=== PATIENT | female | born 2000 | race Hispanic/Latino ===

== ENCOUNTER 2018-06-24 16:04 | Emergency (ER) | payer OTHER ==
[~2018-06-24 16:04] MED LIST: METR-152 PO; PNV11TAB5 PO
[2018-06-24 17:37] LABS: BASOPHILS % (AUTO) 0.7 % (0.0-5.0); EOSINOPHILS % (AUTO) 1.3 % (0.0-8.0); HEMATOCRIT 37.6 % (36-48); MEAN CORPUSCULAR HEMOGLOBIN 28.6 pg (27.0-33.0); MEAN CORPUSCULAR HGB CONC 33.6 g/dL (32.0-36.0); MEAN CORPUSCULAR VOLUME 85.2 fL (80-100); MONOCYTES % (AUTO) 8.6 % (3.0-13.0); NEUTROPHILS % (AUTO) 54.4 % (40.0-77.0); NUCLEATED RED BLOOD CELLS 0.2 % (0.0-0.19); PLATELET COUNT (AUTO) 201 K/uL (130-400); RED BLOOD CELL COUNT(AUTO) 4.41 MIL/uL (4.00-5.50); RED CELL DISTRIBUTION WIDTH 13.7 % (11.0-15.5); WHITE BLOOD COUNT (AUTO) 7.7 K/uL (4.8-10.8)
[2018-06-24 17:55] LABS: CREATININE 0.6 mg/dL (0.5-1.5); POTASSIUM 3.3 mmol/L (3.5-5.1)
[2018-06-24 18:17] LABS: APPEARANCE,URINE Clear (CLEAR); BILIRUBIN,URINE Negative (NEGATIVE); COLOR,URINE Yellow (YELLOW); GLUCOSE, URINE (UA) Negative (NEGATIVE); KETONES,URINE Negative (NEGATIVE); LEUKOCYTE ESTERASE ,URINE Trace (NEGATIVE); NITRATE,URINE Negative (NEGATIVE); OCCULT BLOOD,URINE Negative (NEGATIVE); PH,URINE 6.5 (5.0-8.0); PROTEIN,URINE Negative (NEGATIVE)
[2018-06-24 18:21] LABS: BILIRUBIN,TOTAL 0.3 mg/dL (0.2-1.0); TOTAL PROTEIN, SERUM 7.6 g/dL (6.0-8.3)
[2018-06-24 18:55] LABS: BACTERIA,URINE Rare /HPF (None Seen); RBC,URINE 0-1 /HPF (0-1)
[2018-06-24 18:56] LABS: SQUAMOUS EPITHELIAL CELL,UR Few /HPF (0-2)
== END 2018-06-24 18:47 | disposition home or self-care (01) ==
LOC: EDH 16:04
DX: O20.0 Threatened abortion (principal); O23.41 Unspecified infection of urinary tract in pregnancy, first trimester; O99.511 Diseases of the respiratory system complicating pregnancy, first trimester; E87.6 Hypokalemia; J45.909 Unspecified asthma, uncomplicated; Z3A.01 Less than 8 weeks gestation of pregnancy
CPT/HCPCS: 36415; 76801; 80053; 81001; 84702; 85025

== ENCOUNTER 2018-12-05 05:04 | Observation (INO) | payer MEDICAID ==
[~2018-12-05] VITALS: Ht 157.5 cm; Wt 60.8 kg
[2018-12-05] MEDS ORDERED: LACTATED RINGERS 1000ML 1,000 ML IV PRN (05:19)
[2018-12-05 05:39] LABS: APPEARANCE,URINE Cloudy (CLEAR); BILIRUBIN,URINE Negative (NEGATIVE); COLOR,URINE Yellow (YELLOW); GLUCOSE, URINE (UA) Negative (NEGATIVE); KETONES,URINE Negative (NEGATIVE); LEUKOCYTE ESTERASE ,URINE Moderate (NEGATIVE); NITRATE,URINE Negative (NEGATIVE); OCCULT BLOOD,URINE Negative (NEGATIVE); PH,URINE 6.5 (5.0-8.0); PROTEIN,URINE Negative (NEGATIVE)
[2018-12-05 05:46] LABS: AMPHET/METH SCREEN,URINE NEGATIVE (NEGATIVE); BARBITURATE SCREEN, URINE NEGATIVE (NEGATIVE); BENZODIAZEPINES SCREEN,URINE NEGATIVE (NEGATIVE); CANNABINOID SCREEN,URINE NEGATIVE (NEGATIVE); COCAINE SCREEN,URINE NEGATIVE (NEGATIVE); OPIATE SCREEN,URINE NEGATIVE (NEGATIVE); PHENCYCLIDINE SCREEN,URINE NEGATIVE (NEGATIVE)
[2018-12-05 06:09] LABS: BACTERIA,URINE Moderate /HPF (None Seen); MUCUS,URINE Moderate LPF (None Seen); RBC,URINE None Seen /HPF (0-1)
== END 2018-12-05 06:45 | disposition home or self-care (01) ==
LOC: EDH 05:04 → LDH 05:14
PROVIDERS: ADMIT Obstetrics & Gynecology; ATTEND Obstetrics & Gynecology
DX: O60.03 Preterm labor without delivery, third trimester (principal); Z3A.35 35 weeks gestation of pregnancy; Z79.899 Other long term (current) drug therapy
CPT/HCPCS: 80305; 81001; 99284; G0378 ×2

== ENCOUNTER 2019-01-23 22:24 | Observation (INO) | payer BC, MEDICAID ==
[~2019-01-23] VITALS: Ht 157.5 cm; Wt 66.7 kg
[2019-01-23 23:02] LABS: APPEARANCE,URINE Clear (CLEAR); BILIRUBIN,URINE Negative (NEGATIVE); COLOR,URINE Yellow (YELLOW); GLUCOSE, URINE (UA) Negative (NEGATIVE); KETONES,URINE Negative (NEGATIVE); LEUKOCYTE ESTERASE ,URINE Moderate (NEGATIVE); NITRATE,URINE Negative (NEGATIVE); OCCULT BLOOD,URINE Negative (NEGATIVE); PH,URINE 7.5 (5.0-8.0); PROTEIN,URINE Negative (NEGATIVE)
[2019-01-23 23:14] LABS: BACTERIA,URINE Rare /HPF (None Seen); RBC,URINE 0-1 /HPF (0-1)
== END 2019-01-24 | disposition home or self-care (01) ==
LOC: EDH 22:24 → LDH 22:40
PROVIDERS: ADMIT Obstetrics & Gynecology; ATTEND Obstetrics & Gynecology
DX: O26.893 Other specified pregnancy related conditions, third trimester (principal); R10.30 Lower abdominal pain, unspecified; M54.5 Low back pain; O99.513 Diseases of the respiratory system complicating pregnancy, third trimester; J45.909 Unspecified asthma, uncomplicated; Z3A.37 37 weeks gestation of pregnancy
CPT/HCPCS: 81001; 99284; G0378

== ENCOUNTER 2019-02-06 21:58 | Inpatient (IN) | payer BC, MEDICAID | END 2019-02-08 14:55 | disposition home or self-care (01) | LOC: LDH 21:58 → WSH 02-07 14:28 ==

== ENCOUNTER 2020-05-13 05:58 | Emergency (ER) | payer BC, MEDICAID ==
[~2020-05-13] VITALS: Ht 162.6 cm; Wt 58.1 kg
[2020-05-13] MEDS ORDERED: SODIUM CHLORIDE 0.9% 1000ML 2,000 ML IV ONE (06:18)
[2020-05-13 06:27] LABS: BASOPHILS % (AUTO) 1.1 % (0.0-5.0); EOSINOPHILS % (AUTO) 2.6 % (0.0-8.0); HEMATOCRIT 37.1 % (36-48); MEAN CORPUSCULAR HEMOGLOBIN 24.9 pg (27.0-33.0); MEAN CORPUSCULAR VOLUME 80.5 fL (79-99); NEUTROPHILS % (AUTO) 40.1 % (40.0-77.0); PLATELET COUNT (AUTO) 270 K/uL (130-400); RED BLOOD CELL COUNT(AUTO) 4.61 MIL/uL (4.00-5.50); RED CELL DISTRIBUTION WIDTH 14.7 % (11.0-15.5); WHITE BLOOD COUNT (AUTO) 5.5 K/uL (4.8-10.8)
[2020-05-13 06:37] LABS: CARBON DIOXIDE 25 mmol/L (21-32); CHLORIDE 102 mmol/L (101-111); CREATININE 0.6 mg/dL (0.5-1.5); GLOMERULAR FILTR. RATE CALC 133 mL/min (>60); GLUCOSE,RANDOM 83 mg/dL (70-105); POTASSIUM 3.3 mmol/L (3.5-5.1); SODIUM SERUM 141 mmol/L (136-145); UREA NITROGEN, BLOOD 11 mg/dL (7-18)
[2020-05-13 06:41] LABS: ALANINE AMINOTRANSFERASE 13 U/L (12-78); ALBUMIN 3.7 g/dL (3.5-5.0); ALCOHOL, BLOOD 122 mg/dL (0-10); ASPARTATE AMINOTRANSFERASE 17 U/L (10-37); BILIRUBIN,TOTAL 0.1 mg/dL (0.2-1.0); TOTAL PROTEIN, SERUM 7.4 g/dL (6.0-8.3)
[2020-05-13 06:45] LABS: ACETAMINOPHEN < 1 mcg/mL (10-30); SALICYLATE < 2.8 mg/dL (2.8-20.0)
[2020-05-13 07:03] LABS: APPEARANCE,URINE Cloudy (CLEAR); BILIRUBIN,URINE Negative (NEGATIVE); COLOR,URINE Yellow (YELLOW); GLUCOSE, URINE (UA) Negative (NEGATIVE); KETONES,URINE Negative (NEGATIVE); LEUKOCYTE ESTERASE ,URINE Trace (NEGATIVE); NITRATE,URINE Negative (NEGATIVE); OCCULT BLOOD,URINE Negative (NEGATIVE); PROTEIN,URINE Negative (NEGATIVE); UROBILINOGEN,URINE 0.2 mg/dL (0.2-1.0)
[2020-05-13 07:12] LABS: ABG OXYGEN SATURATION 66.1 % (95.0-99.0); HCO3,VENOUS BLOOD GAS 22.9 (21.0-28.0); PCO2,VENOUS BLOOD GAS 49 (32-45); PH,VENOUS BLOOD GAS 7.292 (7.350-7.450)
[2020-05-13 07:15] LABS: HCG,QUAL RESULT NEGATIVE (NEGATIVE)
[2020-05-13 07:19] LABS: AMPHET/METH SCREEN,URINE NEGATIVE (NEGATIVE); BARBITURATE SCREEN, URINE NEGATIVE (NEGATIVE); BENZODIAZEPINES SCREEN,URINE NEGATIVE (NEGATIVE); CANNABINOID SCREEN,URINE NEGATIVE (NEGATIVE); COCAINE SCREEN,URINE NEGATIVE (NEGATIVE); OPIATE SCREEN,URINE NEGATIVE (NEGATIVE); PHENCYCLIDINE SCREEN,URINE NEGATIVE (NEGATIVE)
[2020-05-13 07:44] LABS: BACTERIA,URINE Rare /HPF (None Seen); RBC,URINE 0-1 /HPF (0-1); SQUAMOUS EPITHELIAL CELL,UR Few /HPF (0-2); WBC,URINE 0-1 /HPF (0-1)
[2020-05-13] MEDS ORDERED: SODIUM BICARB 50MEQ 50ML VIAL IV SCH (11:00)
== END 2020-05-13 16:07 | disposition home or self-care (01) ==
LOC: EDH 05:58
DX: R11.10 Vomiting, unspecified (principal); T43.592A Poisoning by other antipsychotics and neuroleptics, intentional self-harm, initial encounter; F10.129 Alcohol abuse with intoxication, unspecified; J45.909 Unspecified asthma, uncomplicated; F41.9 Anxiety disorder, unspecified; Y92.098 Other place in other non-institutional residence as the place of occurrence of the external cause
CPT/HCPCS: 36415; 36600; 80053; 80305; 81001; 81025; 82803; 85025; 93005; 96361; 96374; 99284; G0481; J7030

== ENCOUNTER 2023-10-12 14:49 | Observation (INO) | payer MEDICAID ==
[~2023-10-12] VITALS: Ht 154.9 cm; Wt 63.5 kg
[~2023-10-12 14:49] MED LIST changes: +FERR-82 PO; -METR-152 PO; -PNV11TAB5 PO; +PREN1TAB80 PO
[2023-10-12 14:54] VITALS: BP 115/64; PULSE 62; RESP 14
[2023-10-12 15:58] LABS: BASOPHILS # (AUTO) 0.03 K/uL (0.00-0.20); BASOPHILS % (AUTO) 0.4 % (0.0-5.0); EOSINOPHILS # (AUTO) 0.08 K/uL (0.00-0.70); EOSINOPHILS % (AUTO) 1.1 % (0.0-8.0); IMMATURE GRANULOCYTE ABSOLUTE 0.04 K/uL (0-1); LYMPHOCYTES % (AUTO) 29.3 % (21.0-51.0); MEAN CORPUSCULAR HEMOGLOBIN 23.9 pg (27.0-33.0); MEAN CORPUSCULAR HGB CONC 31.1 g/dL (32.0-36.0); MEAN CORPUSCULAR VOLUME 76.7 fL (79-99); MONOCYTES # (AUTO) 0.6 K/uL (0.1-1.0); MONOCYTES % (AUTO) 8.6 % (3.0-13.0); NEUTROPHILS # (AUTO) 4.2 K/uL (1.8-7.7); PLATELET COUNT (AUTO) 232 K/uL (130-400); RED BLOOD CELL COUNT(AUTO) 3.52 MIL/uL (4.00-5.50); RED CELL DISTRIBUTION WIDTH 15.5 % (11.0-15.5)
[2023-10-12 16:12] LABS: CREATININE 0.5 mg/dL (0.5-1.0); POTASSIUM 3.6 mmol/L (3.5-5.1)
== END 2023-10-12 17:35 | disposition home or self-care (01) ==
LOC: EDH 14:49 → LDH 16:09
PROVIDERS: ADMIT Obstetrics & Gynecology; ATTEND Obstetrics & Gynecology
DX: O26.892 Other specified pregnancy related conditions, second trimester (principal); R10.30 Lower abdominal pain, unspecified; O99.512 Diseases of the respiratory system complicating pregnancy, second trimester; J45.909 Unspecified asthma, uncomplicated; Z3A.27 27 weeks gestation of pregnancy
CPT/HCPCS: 99284; 76805; 80048; 84702; 85025; 86850; 86900; 86901; 81025; 36415; G0378

== ENCOUNTER 2024-03-01 06:39 | Day surgery (SDC) | payer MEDICAID ==
[2024-02-22 09:29] VITALS: BP 121/68; PULSE 51; RESP 18; TEMP 97.5
[2024-02-22 09:32] LABS: BASOPHILS # (AUTO) 0.04 K/uL (0.00-0.20); BASOPHILS % (AUTO) 0.8 % (0.0-5.0); EOSINOPHILS # (AUTO) 0.14 K/uL (0.00-0.70); EOSINOPHILS % (AUTO) 2.8 % (0.0-8.0); HEMATOCRIT 34.7 % (36-48); IMMATURE GRANULOCYTE ABSOLUTE 0.01 K/uL (0-1); LYMPHOCYTES # (AUTO) 2.5 K/uL (1.0-4.8); MEAN CORPUSCULAR HEMOGLOBIN 22.1 pg (27.0-33.0); MEAN CORPUSCULAR HGB CONC 29.4 g/dL (32.0-36.0); MEAN CORPUSCULAR VOLUME 75.1 fL (79-99); MONOCYTES # (AUTO) 0.4 K/uL (0.1-1.0); MONOCYTES % (AUTO) 6.9 % (3.0-13.0); NEUTROPHILS % (AUTO) 39.3 % (40.0-77.0); PLATELET COUNT (AUTO) 260 K/uL (130-400); RED BLOOD CELL COUNT(AUTO) 4.62 MIL/uL (4.00-5.50); RED CELL DISTRIBUTION WIDTH 19.7 % (11.0-15.5)
[2024-03-01] VITALS (17 sets, daily range): BP systolic 115–137; BP diastolic 62–80; PULSE 47–67; RESP 10–17; TEMP 97.2–98.1
[~2024-03-01] VITALS: Ht 154.9 cm; Wt 65.9 kg
[~2024-03-01 06:39] MED LIST changes: -FERR-82 PO; -PREN1TAB80 PO; +ceFAZolin SODIUM 2 GM VIAL IVPB PRN
[2024-03-01] MEDS ORDERED: FENTanyl CITRate PF 50 MCG/1 ML 2ML VIAL ONE ×2 (07:06→08:21)
[2024-03-01] MEDS ORDERED: MIDAZOLAM HCL 1 MG/ML 2ML VIAL ONE (07:06)
[2024-03-01] MEDS ORDERED: proPOFol 10 MG/ML 20ML VIAL IV ONE (07:06)
[2024-03-01] MEDS ORDERED: rocuRONium bROMide 10MG/1ML 5ML VL ONE (07:14)
[2024-03-01] MEDS ORDERED: ondanSETRON 4MG INJ ONE (07:14)
[2024-03-01] MEDS: LACTATED RINGERS 1000ML 1,000 ML IV ONE (07:25)
[2024-03-01] MEDS: LACTATED RINGERS 1000ML 1,000 ML IV SCH (07:25)
[2024-03-01] MEDS: ceFAZolin SODIUM 2 GM VIAL ONE (07:52)
[2024-03-01] MEDS: BUPIvacaine/PF 0.25% 30ML VIAL IJ ONE (08:10)
[2024-03-01] MEDS ORDERED: GLYCOPYRROLATE 0.2 MG/ML 5 ML VIAL ONE (08:21)
[2024-03-01] MEDS ORDERED: NEOSTIGMINE METHYLSULFATE 1MG/ML IV ONE (08:21)
[2024-03-01] MEDS: ondanSETRON 4MG INJ ONE (09:15)
[2024-03-01] MEDS: ketOROlac 30MG VIAL (30MG/ML) ONE (09:16)
[2024-03-01] MEDS: MEPERIDINE-PF 25 MG/ML SYG ONE (09:17)
[2024-03-01] MEDS: acetaMINOPHEN 1,000 MG/100 ML VIAL IV ONE (09:18)
== END 2024-03-01 10:14 | disposition home or self-care (01) ==
LOC: DAH 06:39
PROVIDERS: ATTEND Obstetrics & Gynecology
DX: Z30.2 Encounter for sterilization (principal); Z64.1 Problems related to multiparity; J45.909 Unspecified asthma, uncomplicated; F41.9 Anxiety disorder, unspecified
CPT/HCPCS: 84703; 85025; 86850 ×2; 86900 ×2; 86901 ×2; 36415 ×2; 58670; 81025; A6260; A4663; A4351; A4606; J7120; J3010 ×2; J0665; J3490 ×3; J2250; J2405 ×2; J1885; J2710; J2175; J0690; C1769 ×3; A4649; A4215 ×2; A4223; A4222; A4221; A4510; A4600; J2704